=== PATIENT | female | born 1965 | race Hispanic/Latino ===

== ENCOUNTER 2016-06-27 09:39 | Emergency (ER) | payer OTHER ==
[2016-06-27 09:51] VITALS: BP 97/58
--- NOTE | 2016-06-27 11:30 | Emergency Department Report ---
ED Recheck HPI - General Chief Complaint: Recheck/Abnormal Lab/Rx Stated Complaint: ATHRITIS PAIN/LIVER CANCER Time Seen by Provider: 06/27/16 11:14 Source: patient Mode of arrival: Ambulatory Limitations: No Limitations - History of Present Illness Initial Comments: 51 y/o female comes into day for wanting a refill on her Xana and lortab. She reports that she has a history liver cancer. She reports that her doctor is out of town. She reports that she went to [facility] emergency room and they had given her refill on her meds. Then she changed her story and said that no she went to [place] emergency room and they gave her refill her medication. Patient reports that she hit right side of her head on the door she was coming in. Denies any pain no loss of consciousness no nausea. Patient denies any pain fever chills nausea vomiting. MD Complaint: medication refill request - Related Data Home Medications Medication Instructions Recorded Confirmed Last Taken ALPRAZolam [Xanax TAB] 1 mg PO TID 06/27/16 06/27/16 Unknown HYDROcodone/ACETAMINOPHEN [Lortab 10 mg PO TID 06/27/16 06/27/16 Unknown 10 mg-300 mg per 15 ML ORAL LIQ] Lisinopril/Hydrochlorothiazide 1 tab PO BID 06/27/16 06/27/16 Unknown [Zestoretic 20-12.5 mg] Omeprazole 20 mg PO DAILY 06/27/16 06/27/16 Unknown Allergies Allergy/AdvReac Type Severity Reaction Status Date / Time No Known Allergies Allergy Unverified 06/27/16 09:45 ED Review of Systems ROS: Stated complaint: ATHRITIS PAIN/LIVER CANCER Other details as noted in HPI Comment: All other systems reviewed and negative Constitutional: denies: chills, fever ED Past Medical Hx - Past Medical History Hx Hypertension: Yes Hx of Cancer: Yes (LIVER) Additional medical history: HEP C - Surgical History Past Surgical History?: No - Social History Smoking Status: Never Smoker Substance Use Type: Prescribed - Medications Home Medications: Home Medications Medication Instructions Recorded Confirmed Last Taken Type ALPRAZolam [Xanax TAB] 1 mg PO TID 06/27/16 06/27/16 Unknown History HYDROcodone/ACETAMINOPHEN [Lortab 10 mg PO TID 06/27/16 06/27/16 Unknown History 10 mg-300 mg per 15 ML ORAL LIQ] Lisinopril/Hydrochlorothiazide 1 tab PO BID 06/27/16 06/27/16 Unknown History [Zestoretic 20-12.5 mg] Omeprazole 20 mg PO DAILY 06/27/16 06/27/16 Unknown History ED Physical Exam - General Limitations: No Limitations General appearance: alert, in no apparent distress - Head Head exam: Present: atraumatic, normocephalic - ENT ENT exam: Present: mucous membranes moist - Neurological Exam Neurological exam: Present: alert, oriented X3, normal gait - Psychiatric Psychiatric exam: Present: anxious - Skin Skin exam: Present: warm, dry, intact ED Course Vital Signs 06/27/16 09:45 Temperature 97.8 F Pulse Rate 79 Blood Pressure 97/58 O2 Sat by Pulse 95 Oximetry ED Recheck MDM - Differential Diagnosis Prescription Refill(s) - Medical Decision Making This provider with evaluated the patient fast track. Discussed with patient overnight to refill any controlled medications. Discussed the patient she needs to contact her prior prescribing provider they should have someone information broker if there are out of town. Critical care attestation.: If time is entered above; I have spent that time in minutes in the direct care of this critically ill patient, excluding procedure time. ED Disposition Clinical Impression: Encounter for medication refill Disposition: DISCHARGED TO HOME OR SELFCARE Is pt being admited?: No Does the pt Need Aspirin: No Referrals: PRIMARY CARE, [Primary Care Provider] - 3-5 Days
== END 2016-06-27 11:30 | disposition home or self-care (01) ==
LOC: ED 09:39
DX: Z76.0 Encounter for issue of repeat prescription (principal); I10 Essential (primary) hypertension; C22.9 Malignant neoplasm of liver, not specified as primary or secondary; Z86.19 Personal history of other infectious and parasitic diseases
CPT/HCPCS: 99281